=== PATIENT | male | born 1970 | race Caucasian/White ===

== ENCOUNTER 2017-01-26 22:41 | Emergency (ER) | payer OTHER ==
[2017-01-27 01:35] VITALS: BP 144/111
== END 2017-01-27 01:35 | disposition home or self-care (01) ==
LOC: ED 22:41
DX: L02.11 Cutaneous abscess of neck (principal)

== ENCOUNTER 2017-01-29 08:35 | Emergency (ER) | payer OTHER ==
[~2017-01-29] VITALS: Ht 185.4 cm; Wt 89.5 kg
[2017-01-29 08:40] VITALS: BP 149/106
== END 2017-01-29 09:33 | disposition home or self-care (01) ==
LOC: ED 08:35
DX: L03.811 Cellulitis of head [any part, except face] (principal)
CPT/HCPCS: J0696